=== PATIENT | male | born 1950 | race Caucasian/White ===

== ENCOUNTER 2021-11-07 10:53 | Observation (INO) | payer MEDICARE, BC ==
[2021-11-07 11:39] LABS: #Basophils 0.1 10x3/uL (0.0-0.2); #Eosinphils 0.2 10x3/uL (0.0-0.5); #Monocytes 0.6 10x3/uL (0.0-1.1); #Neutrophils 4.5 10x3/uL (1.5-8.4); %Basophils 0.9 % (0.0-2.0); %Eosinophils 2.1 % (0.0-6.0); %Lymphocytes 31.2 % (18.0-47.0); %Monocytes 7.2 % (0.0-10.0); %Neutrophils 58.3 % (40.0-75.0); Hemoglobin 14.6 g/dL (13.5-17.5); Mean Corpuscular HGB CONC 31.3 g/dL (32.0-36.0); Mean Corpuscular Volume 92.5 fl (81.2-95.1); Mean Platelet Volume 10.1 fl (7.4-10.4); Platelet Count 209 10x3/uL (150-450); Red Blood Cell (RBC) Count 5.04 10x6/uL (4.32-5.72); White Blood Cell (WBC) Count 7.8 10x3/uL (3.5-10.5)
[2021-11-07 12:01] LABS: ALT (SGPT) 39 U/L (8-55); AST (SGOT) 29 U/L (5-34); Albumin 3.9 g/dL (3.4-4.8); Alkaline Phosphatase 68 U/L (40-110); Anion Gap 14 mmol/L (10-20); BUN (Urea Nitrogen) 29 mg/dL (8.4-25.7); Bilirubin, Total 0.5 mg/dL (0.2-1.2); Calc. Creatinine Clearance 0 mL/min (70-130); Calcium 9.9 mg/dL (7.8-10.44); Carbon Dioxide 23 mmol/L (23-31); Chloride 107 mmol/L (98-107); Globulin 2.6 g/dL (2.4-3.5); Glucose 163 mg/dL (80-115); Potassium 6.3 mmol/L (3.5-5.1); Protein, Total 6.5 g/dL (5.8-8.1); Sodium 138 mmol/L (136-145)
[2021-11-07 12:20] LABS: CKMB 2.4 ng/mL (0-6.6)
[2021-11-07] MEDS ORDERED: Calcium Chloride 1 GM/10 ML Abboject SYRINGE ONE ×2 (12:21→12:22)
[2021-11-07] MEDS ORDERED: Insulin Regular 300 UNITS/3 ML VIAL ONE (12:22)
[2021-11-07] MEDS ORDERED: Dextrose 50% Abboject 50 ML SYRINGE ONE (12:22)
[2021-11-07] MEDS ORDERED: Calcium Gluc 4.6 MEQ/10 ML (100 MG/ML) ONE (12:33)
[2021-11-07] MEDS ORDERED: Albuterol Sulfate 2.5 mg/3 ml Neb ONE (12:40)
[2021-11-07] MEDS ORDERED: Ondansetron ODT 4 MG TAB PO PRN (13:36)
[2021-11-07] MEDS ORDERED: Acetaminophen 325 MG TAB PO PRN (13:36)
[2021-11-07] MEDS ORDERED: Dextrose 5% in Water 1,000 ML IV PRN (13:37)
[2021-11-07] MEDS ORDERED: Dextrose 50% Abboject 50 ML SYRINGE SLOW IVP PRN (13:37)
[2021-11-07] MEDS ORDERED: HumaLOG 300 UNITS/3 ML VIAL SC PRN ×2 (13:37)
[2021-11-07] MEDS ORDERED: Nitroglycerin 0.4 MG TAB (25 Tab Bottle) SL PRN (13:40)
[2021-11-07 14:45] LABS: Troponin I 0.058 ng/mL (< 0.028)
[2021-11-07 15:14] VITALS: BMI 33.0
[2021-11-07 15:42] LABS: Magnesium 2.1 mg/dL (1.6-2.6)
[2021-11-07 18:10] LABS: Anion Gap 14 mmol/L (10-20); BUN (Urea Nitrogen) 26 mg/dL (8.4-25.7); Calc. Creatinine Clearance 88 mL/min (70-130); Calcium 9.9 mg/dL (7.8-10.44); Carbon Dioxide 24 mmol/L (23-31); Chloride 106 mmol/L (98-107); Glucose 106 mg/dL (80-115); Potassium 4.7 mmol/L (3.5-5.1); Sodium 139 mmol/L (136-145)
[2021-11-07 18:17] LABS: Troponin I 0.063 ng/mL (< 0.028)
[2021-11-07] MEDS: Carvedilol 6.25 MG TAB PO SCH (20:12)
[2021-11-07] MEDS ORDERED: Apixaban 5 MG TAB PO SCH (21:00)
[2021-11-07] MEDS ORDERED: Gabapentin 300 MG CAP PO SCH (21:00)
[2021-11-07] MEDS ORDERED: Carvedilol 6.25 MG TAB PO SCH (21:00)
[2021-11-07] MEDS ORDERED: Atorvastatin Calcium 40 MG TAB PO SCH (21:00)
[2021-11-08 04:17] LABS: #Basophils 0.1 10x3/uL (0.0-0.2); #Eosinphils 0.2 10x3/uL (0.0-0.5); #Monocytes 0.7 10x3/uL (0.0-1.1); #Neutrophils 4.6 10x3/uL (1.5-8.4); %Basophils 0.8 % (0.0-2.0); %Eosinophils 2.3 % (0.0-6.0); %Lymphocytes 29.3 % (18.0-47.0); %Monocytes 8.5 % (0.0-10.0); %Neutrophils 58.8 % (40.0-75.0); Hemoglobin 13.9 g/dL (13.5-17.5); Mean Corpuscular HGB CONC 31.3 g/dL (32.0-36.0); Mean Corpuscular Hemoglobin 28.3 pg (27.0-33.0); Mean Corpuscular Volume 90.2 fl (81.2-95.1); Mean Platelet Volume 9.9 fl (7.4-10.4); Platelet Count 199 10x3/uL (150-450); RBC Distribution Width 15.9 % (11.5-14.5); Red Blood Cell (RBC) Count 4.92 10x6/uL (4.32-5.72); White Blood Cell (WBC) Count 7.7 10x3/uL (3.5-10.5)
[2021-11-08 04:31] LABS: Anion Gap 12 mmol/L (10-20); BUN (Urea Nitrogen) 26 mg/dL (8.4-25.7); Calc. Creatinine Clearance 102 mL/min (70-130); Carbon Dioxide 24 mmol/L (23-31); Chloride 109 mmol/L (98-107); Glucose 126 mg/dL (80-115); Potassium 4.6 mmol/L (3.5-5.1); Sodium 140 mmol/L (136-145)
[2021-11-08] MEDS ORDERED: Niacin 500 MG TAB PO SCH (09:00)
[2021-11-08] MEDS ORDERED: buPROPion 75 MG TAB PO SCH (09:00)
[2021-11-08] MEDS ORDERED: Apixaban 5 MG TAB PO SCH (09:00)
[2021-11-08] MEDS ORDERED: Tamsulosin HCl 0.4 MG CAP PO SCH (09:00)
[2021-11-08] MEDS: Carvedilol 6.25 MG TAB PO SCH (09:02)
[2021-11-08 09:18] LABS: Hemoglobin A1c 7.4 % (4.0-6.0)
[2021-11-08 12:33] VITALS: TEMP 98.1
[2021-11-08 12:34] VITALS: BP 125/69
[2021-11-08 17:50] LABS: SARS-CoV-2 PCR by NAA Not Detected (NotDetected)
== END 2021-11-08 16:45 | disposition home or self-care (01) ==
LOC: CSHERS 10:53 → INTOOBSV 15:09 → UNDOADMOB 15:09 → CSHTELE 15:09
PROVIDERS: ADMIT Internal Medicine; ATTEND Internal Medicine
DX: I48.91 Unspecified atrial fibrillation (principal); N17.9 Acute kidney failure, unspecified; I10 Essential (primary) hypertension; E11.40 Type 2 diabetes mellitus with diabetic neuropathy, unspecified; I25.10 Atherosclerotic heart disease of native coronary artery without angina pectoris; Z95.5 Presence of coronary angioplasty implant and graft; Z79.4 Long term (current) use of insulin; K21.9 Gastro-esophageal reflux disease without esophagitis; N40.0 Benign prostatic hyperplasia without lower urinary tract symptoms; Z86.718 Personal history of other venous thrombosis and embolism; I25.2 Old myocardial infarction; Z79.899 Other long term (current) drug therapy; I69.354 Hemiplegia and hemiparesis following cerebral infarction affecting left non-dominant side; Z87.891 Personal history of nicotine dependence; E87.5 Hyperkalemia; Z20.822 Contact with and (suspected) exposure to COVID-19
CPT/HCPCS: 71045; 80048 ×2; 82553; 82962 ×2; 83036; 83735; 83880; 84484 ×2; 85025; 93005; G0378; J0610; U0003; U0005; 36415; 36416; 80053; 84443; J1815; J7611

== ENCOUNTER 2022-03-18 11:33 | Observation (INO) | payer MEDICARE, BC ==
[2022-03-18 12:09] LABS: #Basophils 0.1 10x3/uL (0.0-0.2); #Eosinphils 0.3 10x3/uL (0.0-0.5); #Monocytes 0.8 10x3/uL (0.0-1.1); %Basophils 1.3 % (0.0-2.0); %Eosinophils 3.4 % (0.0-6.0); %Lymphocytes 30.5 % (18.0-47.0); %Monocytes 8.9 % (0.0-10.0); %Neutrophils 55.6 % (40.0-75.0); Mean Corpuscular HGB CONC 33.1 g/dL (32.0-36.0); Mean Corpuscular Hemoglobin 30.9 pg (27.0-33.0); Mean Corpuscular Volume 93.3 fl (81.2-95.1); Mean Platelet Volume 10.8 fl (7.4-10.4); Platelet Count 181 10x3/uL (150-450); RBC Distribution Width 13.6 % (11.5-14.5); Red Blood Cell (RBC) Count 3.88 10x6/uL (4.32-5.72); White Blood Cell (WBC) Count 8.9 10x3/uL (3.5-10.5)
[2022-03-18 12:20] LABS: PTT 24.8 sec (22.0-33.0); Prothrombin Time 11.2 sec (9.5-12.1)
[2022-03-18 12:33] LABS: ALT (SGPT) 28 U/L (8-55); AST (SGOT) 18 U/L (5-34); Albumin 3.7 g/dL (3.4-4.8); Alkaline Phosphatase 63 U/L (40-110); Anion Gap 18 mmol/L (10-20); BUN (Urea Nitrogen) 42 mg/dL (8.4-25.7); Bilirubin, Total 0.5 mg/dL (0.2-1.2); Calc. Creatinine Clearance 0 mL/min (70-130); Calcium 8.9 mg/dL (7.8-10.44); Carbon Dioxide 22 mmol/L (23-31); Chloride 104 mmol/L (98-107); Glucose 185 mg/dL (80-115); Potassium 4.1 mmol/L (3.5-5.1); Protein, Total 5.7 g/dL (5.8-8.1); Sodium 140 mmol/L (136-145)
[2022-03-18 12:44] LABS: CKMB 1.8 ng/mL (0-6.6)
[2022-03-18] MEDS ORDERED: Ondansetron PF 4 MG/2 ML Vial IVP PRN (13:25)
[2022-03-18] MEDS ORDERED: HYDROcodone/Acetaminophen 5/325 mg Tablet PO PRN (13:25)
[2022-03-18] MEDS ORDERED: Acetaminophen 325 MG TAB PO PRN (13:25)
[2022-03-18] MEDS ORDERED: Sodium Chloride 0.9% 1,000 ML IV SCH ×2 (13:30→13:37)
[2022-03-18] MEDS ORDERED: HumaLOG 300 UNITS/3 ML VIAL SC PRN (14:08)
[2022-03-18] MEDS ORDERED: Dextrose 5% in Water 1,000 ML IV PRN (14:08)
[2022-03-18] MEDS ORDERED: Dextrose 50% Abboject 50 ML SYRINGE SLOW IVP PRN (14:08)
[2022-03-18 15:19] LABS: Lactic Acid 4.2 mmol/L (0.5-2.2)
[2022-03-18 15:24] LABS: Troponin I 0.074 ng/mL (< 0.028)
[2022-03-18 15:49] VITALS: BMI 34.0
[2022-03-18 17:22] LABS: SARS-CoV-2 NAA Rapid Test Not Detected (NotDetected)
[2022-03-18 17:45] LABS: Bilirubin Neg (Negative); Blood, Urine Negative (Negative); Clarity Clear (Clear); Glucose, Urine (Dipstick) Normal (Negative); Ketone, Urine Negative (Negative); Leukocyte Negative (Negative); Nitrite Negative (Negative); Protein, Urine (Dipstick) Negative (Neg-Trace); Specific Gravity, Urine 1.015 (1.002-1.036); Urobilinogen Normal mg/dL (Less than 2)
[2022-03-18 17:47] LABS: Urine Culture Reflex No No
[2022-03-18 17:50] LABS: Bacteria/HPF None Seen HPF (None Seen); RBC/HPF 0-3 HPF (0-3); Squamous Epithelial 0-3 HPF (0-3); WBC/HPF 0-3 HPF (0-3)
[2022-03-18 18:52] LABS: Troponin I 0.063 ng/mL (< 0.028)
[2022-03-18] MEDS: buPROPion 75 MG TAB PO SCH (20:45)
[2022-03-18] MEDS ORDERED: Atorvastatin Calcium 40 MG TAB PO SCH (21:00)
[2022-03-18 22:33] VITALS: TEMP 98.7
[2022-03-19 04:46] LABS: #Basophils 0.1 10x3/uL (0.0-0.2); #Eosinphils 0.3 10x3/uL (0.0-0.5); #Monocytes 0.7 10x3/uL (0.0-1.1); #Neutrophils 4.7 10x3/uL (1.5-8.4); %Basophils 0.9 % (0.0-2.0); %Eosinophils 3.1 % (0.0-6.0); %Lymphocytes 29.1 % (18.0-47.0); %Monocytes 8.9 % (0.0-10.0); %Neutrophils 57.6 % (40.0-75.0); Hemoglobin 11.8 g/dL (13.5-17.5); Mean Corpuscular HGB CONC 32.8 g/dL (32.0-36.0); Mean Corpuscular Hemoglobin 30.4 pg (27.0-33.0); Mean Corpuscular Volume 92.8 fl (81.2-95.1); Mean Platelet Volume 11.2 fl (7.4-10.4); Platelet Count 182 10x3/uL (150-450); RBC Distribution Width 13.5 % (11.5-14.5); Red Blood Cell (RBC) Count 3.88 10x6/uL (4.32-5.72); White Blood Cell (WBC) Count 8.1 10x3/uL (3.5-10.5)
[2022-03-19 04:59] LABS: Anion Gap 16 mmol/L (10-20); BUN (Urea Nitrogen) 39 mg/dL (8.4-25.7); Calc. Creatinine Clearance 84 mL/min (70-130); Calcium 9.1 mg/dL (7.8-10.44); Carbon Dioxide 24 mmol/L (23-31); Chloride 107 mmol/L (98-107); Glucose 125 mg/dL (80-115); Sodium 143 mmol/L (136-145)
[2022-03-19] MEDS ORDERED: Apixaban 5 MG TAB PO SCH (09:00)
[2022-03-19] MEDS ORDERED: Tamsulosin HCl 0.4 MG CAP PO SCH (09:00)
[2022-03-19] MEDS: buPROPion 75 MG TAB PO SCH (09:45)
[2022-03-19 11:10] VITALS: BP 150/66
== END 2022-03-19 14:20 | disposition home or self-care (01) ==
LOC: CSHERS 11:33 → CSHIMCU 14:49
PROVIDERS: ADMIT Family Medicine; ATTEND Family Medicine
DX: I95.9 Hypotension, unspecified (principal); R55 Syncope and collapse; I48.0 Paroxysmal atrial fibrillation; E78.2 Mixed hyperlipidemia; I25.10 Atherosclerotic heart disease of native coronary artery without angina pectoris; K21.9 Gastro-esophageal reflux disease without esophagitis; I13.0 Hypertensive heart and chronic kidney disease with heart failure and stage 1 through stage 4 chronic kidney disease, or unspecified chronic kidney disease; E11.22 Type 2 diabetes mellitus with diabetic chronic kidney disease; N18.30 Chronic kidney disease, stage 3 unspecified; I50.9 Heart failure, unspecified; N17.9 Acute kidney failure, unspecified; N40.0 Benign prostatic hyperplasia without lower urinary tract symptoms; E11.40 Type 2 diabetes mellitus with diabetic neuropathy, unspecified; E11.10 Type 2 diabetes mellitus with ketoacidosis without coma; I25.2 Old myocardial infarction; G47.30 Sleep apnea, unspecified; R00.1 Bradycardia, unspecified; I44.0 Atrioventricular block, first degree; E66.9 Obesity, unspecified; Z68.34 Body mass index [BMI] 34.0-34.9, adult; Z86.718 Personal history of other venous thrombosis and embolism; Z86.73 Personal history of transient ischemic attack (TIA), and cerebral infarction without residual deficits; Z87.891 Personal history of nicotine dependence; Z91.14 Patient's other noncompliance with medication regimen; Z79.01 Long term (current) use of anticoagulants; Z79.84 Long term (current) use of oral hypoglycemic drugs; Z79.899 Other long term (current) drug therapy; Z95.5 Presence of coronary angioplasty implant and graft; Z20.822 Contact with and (suspected) exposure to COVID-19
CPT/HCPCS: 71045; 80048; 80053; 81001; 82553; 82962 ×2; 83605 ×2; 83880; 84484 ×2; 85025 ×2; 85610; 85730; 93005 ×2; 96360; 97116; 99285; U0002; 36415; 36416; 93010; G0378; J1815; J7050

== ENCOUNTER 2024-03-21 11:17 | Emergency (ER) | payer MEDICARE, BC ==
[2024-03-21 12:09] LABS: #Eosinphils 0.22 10x3/uL (0.0-0.5); #Monocytes 0.67 10x3/uL (0.0-1.1); #Neutrophils 5.89 10x3/uL (1.5-8.4); %Basophils 1.1 % (0.0-2.0); %Eosinophils 2.5 % (0.0-6.0); %Lymphocytes 22.9 % (18.0-47.0); %Monocytes 7.5 % (0.0-10.0); %Neutrophils 65.6 % (40.0-75.0); Hematocrit 42.7 % (38.8-50.0); Hemoglobin 14.5 g/dL (13.5-17.5); Mean Corpuscular Hemoglobin 31.5 pg (27.0-33.0); Mean Corpuscular Volume 92.8 fL (81.2-95.1); Platelet Count 175 10x3/uL (150-450); RBC Distribution Width 13.3 % (11.5-14.5)
[2024-03-21 12:14] LABS: ALT (SGPT) 13 U/L (8-55); AST (SGOT) 15 U/L (5-34); Albumin 3.5 g/dL (3.4-4.8); Alkaline Phosphatase 65 U/L (40-110); Anion Gap 12 mmol/L (10-20); BUN (Urea Nitrogen) 31 mg/dL (8.4-25.7); Bilirubin, Total 0.7 mg/dL (0.2-1.2); CK (CPK) 102 U/L (30-200); Calc. Creatinine Clearance 0 mL/min (70-130); Calcium 9.2 mg/dL (7.8-10.44); Carbon Dioxide 26 mmol/L (23-31); Chloride 102 mmol/L (98-107); Estimated GFR 37; Globulin 2.4 g/dL (2.4-3.5); Glucose 358 mg/dL (83-110); Potassium 5.1 mmol/L (3.5-5.1); Protein, Total 5.9 g/dL (5.8-8.1); Sodium 135 mmol/L (136-145)
[2024-03-21 15:15] LABS: Anion Gap 12 mmol/L (10-20); BUN (Urea Nitrogen) 30 mg/dL (8.4-25.7); Calc. Creatinine Clearance 0 mL/min (70-130); Calcium 8.8 mg/dL (7.8-10.44); Carbon Dioxide 25 mmol/L (23-31); Chloride 104 mmol/L (98-107); Estimated GFR 43; Glucose 309 mg/dL (83-110); Potassium 4.5 mmol/L (3.5-5.1); Sodium 136 mmol/L (136-145)
[2024-03-21 15:18] LABS: Troponin I 0.028 ng/mL (< 0.028)
== END 2024-03-21 15:27 | disposition home or self-care (01) ==
LOC: CSHERS 11:17
DX: T67.5XXA Heat exhaustion, unspecified, initial encounter (principal); S80.822A Blister (nonthermal), left lower leg, initial encounter; E11.9 Type 2 diabetes mellitus without complications; I10 Essential (primary) hypertension; E78.00 Pure hypercholesterolemia, unspecified; X30.XXXA Exposure to excessive natural heat, initial encounter; Z79.899 Other long term (current) drug therapy; Z87.891 Personal history of nicotine dependence; Z79.4 Long term (current) use of insulin; E10.40 Type 1 diabetes mellitus with diabetic neuropathy, unspecified
CPT/HCPCS: 36415; 80053; 82550; 84484; 85025; 93005

== ENCOUNTER 2024-03-22 19:08 | Emergency (ER) | payer MEDICARE, BC ==
[2024-03-22] MEDS ORDERED: Bacitracin 1 PK ONE (20:07)
== END 2024-03-22 20:25 | disposition home or self-care (01) ==
LOC: CSHERS 19:08
DX: S81.802A Unspecified open wound, left lower leg, initial encounter (principal); E78.00 Pure hypercholesterolemia, unspecified; I10 Essential (primary) hypertension; E11.40 Type 2 diabetes mellitus with diabetic neuropathy, unspecified; Z87.891 Personal history of nicotine dependence; Z79.4 Long term (current) use of insulin; Z79.899 Other long term (current) drug therapy; Z86.73 Personal history of transient ischemic attack (TIA), and cerebral infarction without residual deficits; Z79.01 Long term (current) use of anticoagulants; X58.XXXA Exposure to other specified factors, initial encounter
CPT/HCPCS: 99283

== ENCOUNTER 2024-04-10 08:02 | Outpatient (CLI) | payer MEDICARE, BC | END 2024-04-10 08:03 | disposition home or self-care (01) | LOC: CSHWCC 08:02 | PROVIDERS: ATTEND Nurse Practitioner Family | DX: S81.802D Unspecified open wound, left lower leg, subsequent encounter (principal); E11.622 Type 2 diabetes mellitus with other skin ulcer; L97.221 Non-pressure chronic ulcer of left calf limited to breakdown of skin | CPT/HCPCS: 11042; 11045; G0463; 99213 ==

== ENCOUNTER 2024-04-17 10:10 | Outpatient (CLI) | payer MEDICARE, BC | END 2024-04-17 10:11 | disposition home or self-care (01) | LOC: CSHWCC 10:10 | PROVIDERS: ATTEND Nurse Practitioner Family | DX: S81.802D Unspecified open wound, left lower leg, subsequent encounter (principal); E11.622 Type 2 diabetes mellitus with other skin ulcer; L97.221 Non-pressure chronic ulcer of left calf limited to breakdown of skin | CPT/HCPCS: 11042; 11045 ==

== ENCOUNTER 2024-06-18 09:03 | Outpatient (CLI) | payer MEDICARE, BC | END 2024-06-18 09:04 | disposition home or self-care (01) | LOC: CSHWCC 09:03 | PROVIDERS: ATTEND Nurse Practitioner Family | DX: S81.802D Unspecified open wound, left lower leg, subsequent encounter (principal); E11.622 Type 2 diabetes mellitus with other skin ulcer; L97.221 Non-pressure chronic ulcer of left calf limited to breakdown of skin; E11.51 Type 2 diabetes mellitus with diabetic peripheral angiopathy without gangrene | CPT/HCPCS: 15271; Q4133 ==

== ENCOUNTER 2024-06-25 09:18 | Outpatient (CLI) | payer MEDICARE, BC | END 2024-06-25 09:19 | disposition home or self-care (01) | LOC: CSHWCC 09:18 | PROVIDERS: ATTEND Nurse Practitioner Family | DX: S81.802D Unspecified open wound, left lower leg, subsequent encounter (principal); E11.622 Type 2 diabetes mellitus with other skin ulcer; L97.221 Non-pressure chronic ulcer of left calf limited to breakdown of skin; E11.59 Type 2 diabetes mellitus with other circulatory complications | CPT/HCPCS: 15271; Q4133 ==

== ENCOUNTER 2024-07-02 09:53 | Outpatient (CLI) | payer MEDICARE, BC | END 2024-07-02 09:54 | disposition home or self-care (01) | LOC: CSHWCC 09:53 | PROVIDERS: ATTEND Nurse Practitioner Family | DX: S81.802D Unspecified open wound, left lower leg, subsequent encounter (principal); E11.622 Type 2 diabetes mellitus with other skin ulcer; L97.221 Non-pressure chronic ulcer of left calf limited to breakdown of skin; E11.51 Type 2 diabetes mellitus with diabetic peripheral angiopathy without gangrene | CPT/HCPCS: 15271; Q4133 ==

== ENCOUNTER 2024-07-21 09:48 | Outpatient (CLI) | payer MEDICARE, BC | END 2024-07-21 09:49 | disposition home or self-care (01) | LOC: CSHWCC 09:48 | PROVIDERS: ATTEND Nurse Practitioner Family | DX: S81.802D Unspecified open wound, left lower leg, subsequent encounter (principal); E11.622 Type 2 diabetes mellitus with other skin ulcer; L97.221 Non-pressure chronic ulcer of left calf limited to breakdown of skin; E11.59 Type 2 diabetes mellitus with other circulatory complications | CPT/HCPCS: 11042 ==

== ENCOUNTER 2024-07-28 09:46 | Outpatient (CLI) | payer MEDICARE, BC | END 2024-07-28 09:47 | disposition home or self-care (01) | LOC: CSHWCC 09:46 | PROVIDERS: ATTEND Nurse Practitioner Family | DX: S81.802D Unspecified open wound, left lower leg, subsequent encounter (principal); E11.622 Type 2 diabetes mellitus with other skin ulcer; L97.221 Non-pressure chronic ulcer of left calf limited to breakdown of skin; E11.59 Type 2 diabetes mellitus with other circulatory complications | CPT/HCPCS: 15271; Q4133 ==

== ENCOUNTER 2024-08-04 08:45 | Outpatient (CLI) | payer MEDICARE, BC | END 2024-08-04 08:46 | disposition home or self-care (01) | LOC: CSHWCC 08:45 | PROVIDERS: ATTEND Nurse Practitioner Family | DX: E11.622 Type 2 diabetes mellitus with other skin ulcer (principal); L97.221 Non-pressure chronic ulcer of left calf limited to breakdown of skin; S81.802D Unspecified open wound, left lower leg, subsequent encounter; E11.51 Type 2 diabetes mellitus with diabetic peripheral angiopathy without gangrene; I73.9 Peripheral vascular disease, unspecified | CPT/HCPCS: 97597 ==

== ENCOUNTER 2024-08-11 08:53 | Outpatient (CLI) | payer MEDICARE, BC | END 2024-08-11 08:54 | disposition home or self-care (01) | LOC: CSHWCC 08:53 | PROVIDERS: ATTEND Nurse Practitioner Family | DX: S81.802D Unspecified open wound, left lower leg, subsequent encounter (principal); E11.622 Type 2 diabetes mellitus with other skin ulcer; L97.221 Non-pressure chronic ulcer of left calf limited to breakdown of skin; E11.59 Type 2 diabetes mellitus with other circulatory complications | CPT/HCPCS: 99212; G0463 ==

== ENCOUNTER 2024-08-23 11:42 | Emergency (ER) | payer MEDICARE, BC ==
[2024-08-23] MEDS ORDERED: Bupivacaine PF 0.5% 30 ML VIAL ONE (12:49)
== END 2024-08-23 14:00 | disposition home or self-care (01) ==
LOC: CSHERS 11:42
DX: S61.211A Laceration without foreign body of left index finger without damage to nail, initial encounter (principal); E11.40 Type 2 diabetes mellitus with diabetic neuropathy, unspecified; I25.10 Atherosclerotic heart disease of native coronary artery without angina pectoris; I10 Essential (primary) hypertension; I25.2 Old myocardial infarction; Z95.5 Presence of coronary angioplasty implant and graft; Z79.4 Long term (current) use of insulin; Z87.891 Personal history of nicotine dependence; W26.0XXA Contact with knife, initial encounter; Y93.89 Activity, other specified
CPT/HCPCS: 12001; 99282; J0665

== ENCOUNTER 2024-08-25 12:35 | Outpatient (CLI) | payer MEDICARE, BC | END 2024-08-25 12:36 | disposition home or self-care (01) | LOC: CSHWCC 12:35 | PROVIDERS: ATTEND Nurse Practitioner Family | DX: S81.802D Unspecified open wound, left lower leg, subsequent encounter (principal); E11.622 Type 2 diabetes mellitus with other skin ulcer; L97.221 Non-pressure chronic ulcer of left calf limited to breakdown of skin; E11.59 Type 2 diabetes mellitus with other circulatory complications | CPT/HCPCS: 97597 ==

== ENCOUNTER 2024-09-01 08:35 | Outpatient (CLI) | payer MEDICARE, BC | END 2024-09-01 08:36 | disposition home or self-care (01) | LOC: CSHWCC 08:35 | PROVIDERS: ATTEND Family Medicine | DX: E11.622 Type 2 diabetes mellitus with other skin ulcer (principal); L97.221 Non-pressure chronic ulcer of left calf limited to breakdown of skin; S81.802D Unspecified open wound, left lower leg, subsequent encounter; E11.51 Type 2 diabetes mellitus with diabetic peripheral angiopathy without gangrene; I73.9 Peripheral vascular disease, unspecified | CPT/HCPCS: 99213; G0463 ==

== ENCOUNTER 2024-09-08 09:31 | Emergency (ER) | payer MEDICARE, BC | END 2024-09-08 10:22 | disposition home or self-care (01) | LOC: CSHERS 09:31 | DX: Z48.02 Encounter for removal of sutures (principal); S61.211D Laceration without foreign body of left index finger without damage to nail, subsequent encounter; E11.40 Type 2 diabetes mellitus with diabetic neuropathy, unspecified; I10 Essential (primary) hypertension; Z87.891 Personal history of nicotine dependence; Z79.4 Long term (current) use of insulin; X58.XXXD Exposure to other specified factors, subsequent encounter ==

== ENCOUNTER 2025-05-03 18:28 | Inpatient (IN) | payer MEDICARE, BC ==
[~2025-05-03 18:28] MED LIST: Iopamidol 370 76% 100 ML VIAL ONE
[2025-05-03 19:48] LABS: ALT (SGPT) 17 U/L (Less than 45); AST (SGOT) 17 U/L (11-34); Albumin 3.6 g/dL (3.1-4.5); Alkaline Phosphatase 56 U/L (40-110); Anion Gap 15 mmol/L (10-20); BUN (Urea Nitrogen) 53 mg/dL (8.4-25.7); Bilirubin, Total 0.4 mg/dL (0.3-1.2); Calc. Creatinine Clearance 0 mL/min (70-130); Calcium 9.3 mg/dL (7.8-10.44); Carbon Dioxide 24 mmol/L (23-31); Chloride 99 mmol/L (98-107); Globulin 3.4 g/dL (2.4-3.5); Glucose 148 mg/dL (83-110); Potassium 4.9 mmol/L (3.5-5.1); Sodium 133 mmol/L (136-145)
[2025-05-03 19:52] LABS: Troponin I 0.026 ng/mL (< 0.028)
[2025-05-03 19:57] LABS: #Basophils 0.04 10x3/uL (0.0-0.2); #Eosinophils 0.31 10x3/uL (0.0-0.5); #Monocytes 0.77 10x3/uL (0.0-1.1); #Neutrophils 4.15 10x3/uL (1.5-8.4); %Basophils 0.5 % (0.0-2.0); %Eosinophils 4.1 % (0.0-6.0); %Lymphocytes 30.0 % (18.0-47.0); %Monocytes 10.2 % (0.0-10.0); %Neutrophils 54.9 % (40.0-75.0); Hematocrit 39.5 % (38.8-50.0); Hemoglobin 13.2 g/dL (13.5-17.5); Mean Corpuscular Hemoglobin 31.3 pg (27.0-33.0); Mean Corpuscular Volume 93.6 fL (81.2-95.1); Platelet Count 175 10x3/uL (150-450); Red Blood Cell (RBC) Count 4.22 10x6/uL (4.32-5.72); White Blood Cell (WBC) Count 7.56 10x3/uL (3.5-10.5)
[2025-05-03] MEDS ORDERED: Nitroglycerin 0.4 MG TAB (25 Tab Bottle) SL PRN (22:20)
[2025-05-03 23:01] VITALS: BMI 34.9
[2025-05-03 23:09] LABS: Troponin I 0.011 ng/mL (< 0.028)
[2025-05-03] MEDS ORDERED: hydrALAZINE 20 MG/ML VIAL SLOW IVP PRN (23:12)
[2025-05-03] MEDS ORDERED: Glucagon 1 MG/ML KIT IM PRN (23:14)
[2025-05-03] MEDS ORDERED: Dextrose 50% Abboject 50 ML SYRINGE SLOW IVP PRN (23:14)
[2025-05-04] MEDS: Aspirin 325 MG TAB PO SCH (00:49)
[2025-05-04] MEDS: cefTRIAXone\\ROCEPHIN 1 GM in Sodium Chloride 0.9% 100 ML IVPB SCH (00:49)
[2025-05-04] MEDS: guaiFENesin/Codeine Phosphate 100 mg/10 mg 5 ml UD Cup PO PRN (01:18)
[2025-05-04 02:07] LABS: Troponin I 0.016 ng/mL (< 0.028)
[2025-05-04 02:17] LABS: Cardiac Risk 4.8 (Less than 4.5); Cholesterol 200.0 mg/dl (< 200 Desired); HDL Cholesterol 42.0 mg/dL (>60 Neg Risk); LDL Cholesterol, Calculated 122.0 mg/dL; Triglycerides 180.0 mg/dL (Less than 150)
[2025-05-04] MEDS: Enoxaparin 40 MG (0.4 mL) SYRINGE SC SCH (09:29)
[2025-05-04] MEDS: Furosemide 20 MG TAB PO SCH ×2 (10:44→21:05)
[2025-05-04] MEDS: Pantoprazole 40 MG DR.TAB PO SCH (10:44)
[2025-05-04] MEDS: Apixaban 5 MG TAB PO SCH ×2 (10:44→21:05)
[2025-05-04] MEDS: Metoprolol Succinate XL 50 MG ER.TAB PO SCH (10:44)
[2025-05-04] MEDS: Lisinopril 20 MG TAB PO SCH (10:44)
[2025-05-04] MEDS: Isosorbide Mononitrate 30 MG ER.TAB.S PO SCH (12:21)
[2025-05-04] MEDS: Transdermal Patch Removal TOP SCH (12:22)
[2025-05-04] MEDS: Amoxicillin/Potassium Clav 875 MG TAB PO SCH (21:03)
[2025-05-05 04:37] LABS: #Basophils 0.05 10x3/uL (0.0-0.2); #Eosinophils 0.31 10x3/uL (0.0-0.5); #Monocytes 0.83 10x3/uL (0.0-1.1); #Neutrophils 3.87 10x3/uL (1.5-8.4); %Basophils 0.7 % (0.0-2.0); %Eosinophils 4.4 % (0.0-6.0); %Lymphocytes 27.7 % (18.0-47.0); %Monocytes 11.8 % (0.0-10.0); %Neutrophils 55.1 % (40.0-75.0); Hematocrit 37.1 % (38.8-50.0); Hemoglobin 12.3 g/dL (13.5-17.5); Mean Corpuscular Hemoglobin 31.0 pg (27.0-33.0); Mean Corpuscular Volume 93.5 fL (81.2-95.1); Platelet Count 173 10x3/uL (150-450); Red Blood Cell (RBC) Count 3.97 10x6/uL (4.32-5.72); White Blood Cell (WBC) Count 7.03 10x3/uL (3.5-10.5)
[2025-05-05 04:48] LABS: Anion Gap 17 mmol/L (10-20); BUN (Urea Nitrogen) 46 mg/dL (8.4-25.7); Calc. Creatinine Clearance 59 mL/min (70-130); Calcium 9.4 mg/dL (7.8-10.44); Carbon Dioxide 21 mmol/L (23-31); Chloride 103 mmol/L (98-107); Glucose 129 mg/dL (83-110); Potassium 4.5 mmol/L (3.5-5.1); Sodium 136 mmol/L (136-145)
[2025-05-05] MEDS ORDERED: Isosorbide Mononitrate 30 MG ER.TAB.S PO SCH (09:00)
[2025-05-05] MEDS ORDERED: Lisinopril 20 MG TAB PO SCH (09:00)
[2025-05-05 09:11] VITALS: TEMP 99.3
[2025-05-05] MEDS: Metoprolol Succinate XL 50 MG ER.TAB PO SCH (09:17)
[2025-05-05] MEDS: Pantoprazole 40 MG DR.TAB PO SCH (09:17)
[2025-05-05] MEDS: Lisinopril 5 MG TAB PO SCH (09:18)
[2025-05-05 09:21] VITALS: BP 114/60
[2025-05-06] MEDS ORDERED: Lisinopril 2.5 MG TAB PO SCH (09:00)
== END 2025-05-05 12:15 | disposition home or self-care (01) | DRG 194 ==
LOC: CSHERS 18:28 → CSHTELE 21:25 → OBSVTOIN 05-05 09:47
PROVIDERS: ADMIT Hospitalist; ATTEND Hospitalist
DX: J18.9 Pneumonia, unspecified organism (principal); I13.0 Hypertensive heart and chronic kidney disease with heart failure and stage 1 through stage 4 chronic kidney disease, or unspecified chronic kidney disease; I50.42 Chronic combined systolic (congestive) and diastolic (congestive) heart failure; N17.9 Acute kidney failure, unspecified; I25.10 Atherosclerotic heart disease of native coronary artery without angina pectoris; I25.2 Old myocardial infarction; E78.5 Hyperlipidemia, unspecified; M25.561 Pain in right knee; W19.XXXA Unspecified fall, initial encounter; E11.22 Type 2 diabetes mellitus with diabetic chronic kidney disease; N18.9 Chronic kidney disease, unspecified; E11.40 Type 2 diabetes mellitus with diabetic neuropathy, unspecified; Z79.01 Long term (current) use of anticoagulants; Z90.49 Acquired absence of other specified parts of digestive tract; Z90.89 Acquired absence of other organs; I49.5 Sick sinus syndrome; I48.0 Paroxysmal atrial fibrillation
CPT/HCPCS: 36415; 36416; 71045; 71275; 80048; 80053; 80061; 83880; 84484; 85025; 93005; 93306; 96372; 96374; G0378; J0696; J1650; Q9967

== ENCOUNTER 2025-05-12 14:29 | Outpatient (CLI) | payer MEDICARE, BC | END 2025-05-12 14:30 | disposition home or self-care (01) | LOC: CSHCP 14:29 | PROVIDERS: ATTEND Internal Medicine Cardiovascular Disease | DX: R06.00 Dyspnea, unspecified (principal); J98.8 Other specified respiratory disorders; R14.0 Abdominal distension (gaseous) | CPT/HCPCS: 94060; 94664; 94729; 94760 ==

== ENCOUNTER 2025-05-13 09:41 | Emergency (ER) | payer MEDICARE, BC ==
[2025-05-13 10:27] LABS: #Basophils 0.15 10x3/uL (0.0-0.2); #Eosinophils 0.92 10x3/uL (0.0-0.5); #Monocytes 0.88 10x3/uL (0.0-1.1); #Neutrophils 4.62 10x3/uL (1.5-8.4); %Basophils 1.5 % (0.0-2.0); %Eosinophils 9.3 % (0.0-6.0); %Lymphocytes 33.4 % (18.0-47.0); %Monocytes 8.9 % (0.0-10.0); %Neutrophils 46.7 % (40.0-75.0); Hematocrit 42.8 % (38.8-50.0); Hemoglobin 14.3 g/dL (13.5-17.5); Mean Corpuscular Hemoglobin 31.1 pg (27.0-33.0); Mean Corpuscular Volume 93.0 fL (81.2-95.1); Platelet Count 262 10x3/uL (150-450); Red Blood Cell (RBC) Count 4.60 10x6/uL (4.32-5.72); White Blood Cell (WBC) Count 9.89 10x3/uL (3.5-10.5)
[2025-05-13 10:59] LABS: ALT (SGPT) 19 U/L (Less than 45); AST (SGOT) 20 U/L (11-34); Albumin 4.1 g/dL (3.1-4.5); Alkaline Phosphatase 60 U/L (40-110); Anion Gap 14 mmol/L (10-20); BUN (Urea Nitrogen) 45 mg/dL (8.4-25.7); Bilirubin, Total 0.6 mg/dL (0.3-1.2); Calc. Creatinine Clearance 0 mL/min (70-130); Calcium 10.6 mg/dL (7.8-10.44); Carbon Dioxide 26 mmol/L (23-31); Chloride 98 mmol/L (98-107); Globulin 3.5 g/dL (2.4-3.5); Glucose 171 mg/dL (83-110); Potassium 4.4 mmol/L (3.5-5.1); Sodium 134 mmol/L (136-145)
[2025-05-13 13:55] LABS: Glucose, Urine (Dipstick) Normal (Negative); Leukocyte Negative (Negative); Protein, Urine (Dipstick) Negative (Neg-Trace); Specific Gravity, Urine 1.015 (1.005-1.030)
[2025-05-13 14:28] LABS: CAUTI Indications for Culture Alt mental st,lethar; RBC/HPF 0-3 HPF (0-3); WBC/HPF 0-3 HPF (0-3)
[2025-05-13 14:29] LABS: Bacteria/HPF Rare-Few HPF (None Seen)
[2025-05-13 14:30] LABS: Urine Culture Reflex No No
== END 2025-05-13 17:10 | disposition home or self-care (01) ==
LOC: CSHERS 09:41
DX: R53.1 Weakness (principal); N17.9 Acute kidney failure, unspecified; E86.0 Dehydration; I12.9 Hypertensive chronic kidney disease with stage 1 through stage 4 chronic kidney disease, or unspecified chronic kidney disease; E11.22 Type 2 diabetes mellitus with diabetic chronic kidney disease; N18.9 Chronic kidney disease, unspecified; E11.40 Type 2 diabetes mellitus with diabetic neuropathy, unspecified; I25.10 Atherosclerotic heart disease of native coronary artery without angina pectoris; I25.2 Old myocardial infarction; Z87.891 Personal history of nicotine dependence; Z86.73 Personal history of transient ischemic attack (TIA), and cerebral infarction without residual deficits; Z95.5 Presence of coronary angioplasty implant and graft
CPT/HCPCS: 70450; 71045; 80053; 81001; 83880; 85025; 93005; 96360; 96361; J7620